=== PATIENT | female | born 1970 | race Caucasian/White ===

== ENCOUNTER → 2018-07-12 | Outpatient (CLI) | payer OTHER | END | disposition home or self-care (01) | LOC: MRI 07-03 08:00 | DX: M48.02 Spinal stenosis, cervical region (principal); M47.812 Spondylosis without myelopathy or radiculopathy, cervical region; M50.20 Other cervical disc displacement, unspecified cervical region; M54.42 Lumbago with sciatica, left side; R51 Headache; M12.88 Other specific arthropathies, not elsewhere classified, other specified site; M25.78 Osteophyte, vertebrae ==

== ENCOUNTER 2018-11-29 21:37 | Emergency (ER) | payer OTHER ==
[~2018-11-29] VITALS: Ht 167.6 cm; Wt 86.2 kg
[2018-11-29] MEDS ORDERED: ANTIBIOTIC28.4 GM T (23:25)
[2018-11-29] MEDS ORDERED: AUGMENTIN 875-875 MG PO (23:25)
== END 2018-11-29 23:49 | disposition home or self-care (01) ==
LOC: ED 21:37
DX: S51.812A Laceration without foreign body of left forearm, initial encounter (principal); I10 Essential (primary) hypertension; G89.29 Other chronic pain; Z23 Encounter for immunization; W54.0XXA Bitten by dog, initial encounter; Y93.89 Activity, other specified; Y92.89 Other specified places as the place of occurrence of the external cause; Y99.8 Other external cause status